=== PATIENT | female | born 1960 | race Caucasian/White ===

== ENCOUNTER → 2018-01-22 | Outpatient (CLI) | payer OTHER ==
[2016-07-14 08:33] VITALS: BP 112/69
[~2018-01-22] MED LIST: ALPR1TAB2 PO; ASPI-630 PO; ATOR10TA60 PO; ATOR40TA59 PO; BUPR100T11 PO; ESCITALOPRAM OX20 MG PO; FLUO20CA16; IBUP200T44 PO; LOSA1TAB25 PO; LOSA50TA6 PO; MAG DELAY64 MG PO; METF500T4 PO; OMEP10CA3 PO; OMEP40CA5 PO; OXYC-323 PO; TOPI25TA52 PO
--- NOTE | 2018-01-22 15:26 | RAD ---
KUB History: Abdominal pain and epigastric pain towards the right side since Monday. Nausea. Soft stools. Findings: No obstructive bowel pattern is seen. Calcified phleboliths are seen within both sides of the anatomic pelvis. Cholecystectomy clips are evident. IMPRESSION: No acute radiographic abnormality.
== END | disposition home or self-care (01) ==
LOC: DXRAD 12:50
PROVIDERS: ATTEND Nurse Practitioner
DX: R10.9 Unspecified abdominal pain (principal); I87.8 Other specified disorders of veins
CPT/HCPCS: 74018

== ENCOUNTER 2018-12-07 20:26 | Emergency (ER) | payer SELFPAY ==
[~2018-12-07] VITALS: Ht 154.9 cm; Wt 68.9 kg
[~2018-12-07 20:26] MED LIST changes: -LOSA50TA6 PO; +LOSA50TA86 PO; +METF500T16 PO; -METF500T4 PO; -OXYC-323 PO; +OXYC1TAB15 PO
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
[2018-12-07 22:00] VITALS: BP 128/82
[2018-12-07] MEDS ORDERED: IBUPROFEN 600 MG TABLET. PO ONE (22:00)
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
[2018-12-07] MEDS ORDERED: HYDR-3165 PO (22:01)
== END 2018-12-07 22:10 | disposition home or self-care (01) ==
LOC: EEVIPCON 20:26 → ER 20:26
DX: S62.367A Nondisplaced fracture of neck of fifth metacarpal bone, left hand, initial encounter for closed fracture (principal); Y04.0XXA Assault by unarmed brawl or fight, initial encounter; Y93.89 Activity, other specified; Y92.89 Other specified places as the place of occurrence of the external cause; Y99.8 Other external cause status
CPT/HCPCS: 29125; 73130; 99283

== ENCOUNTER → 2022-01-14 | Outpatient (CLI) | payer OTHER ==
[~2022-01-14] MED LIST changes: +HYDR-3165 PO; -OMEP10CA3 PO; +OMEP10CA4 PO; -OMEP40CA5 PO; +OMEP40CA7 PO
[2022-01-14 16:00] LABS: BASO # 0.1 x10^3/uL (0.0-0.2); BASO % 1 % (0-3); EOS # 0.3 x10^3/uL (0.0-0.7); EOS % 3 % (0-3); HEMOGLOBIN 15.1 g/dL (12.0-15.5); LYMPH # 3.7 x10^3/uL (1.0-4.8); LYMPH % 46 % (24-48); MEAN CORPUSCULAR HEMOGLOBIN 31 pg (25-35); MEAN CORPUSCULAR HGB CONC 34 g/dL (31-37); MEAN CORPUSCULAR VOLUME 91 fL (79-100); MONO # 0.5 x10^3/uL (0.0-1.1); MONO % 6 % (0-9); NEUT # 3.5 x10^3uL (1.8-7.7); NEUT % 44 % (31-73); PLATELET COUNT 326 x10^3/uL (140-400); RED BLOOD COUNT 4.96 x10^6/uL (3.50-5.40); RED CELL DISTRIBUTION WIDTH 13.8 % (11.5-14.5)
[2022-01-14 16:04] LABS: ALBUMIN 4.1 g/dL (3.4-5.0); ALBUMIN/GLOBULIN RATIO 1.1 (1.0-1.7); CALCIUM 8.9 mg/dL (8.5-10.1); CREATININE 0.6 mg/dL (0.6-1.0); POTASSIUM 4.3 mmol/L (3.5-5.1); TOTAL BILIRUBIN 0.4 mg/dL (0.2-1.0); TOTAL PROTEIN 7.8 g/dL (6.4-8.2)
[2022-01-15 11:23] LABS: FREE T4 0.96 ng/dL (0.76-1.46); THYROID STIM HORMONE (TSH) 2.403 uIU/mL (0.358-3.740)
== END ==
LOC: LAB 15:27
PROVIDERS: ATTEND Family Medicine
DX: R10.13 Epigastric pain (principal)
CPT/HCPCS: 36415; 80053; 83690; 84439; 84443; 85025

== ENCOUNTER → 2022-01-17 | Outpatient (CLI) | payer BC, OTHER ==
--- NOTE | 2022-01-17 15:52 | RAD ---
CT ABDOMEN+PELVIS WO History: Abdominal pain for one year. Comparison: 01/31/2014 Technique: CT abdomen and pelvis without contrast. Findings: The lung bases are clear. No pleural or pericardial effusion. Hypoattenuating focus in the right hepatic lobe measuring 1.2 cm previously demonstrated flash fillin g consistent with hemangioma. The gallbladder is surgically absent. The pancreas, spleen and adrenal glands are unremarkable. Right kidney is within normal limits. The left kidney demonstrates prominent dilation of the renal pelvis and mild hydronephrosis, increased from comparison with narrowing at th e ureteropelvic junction. No ureterolithiasis or hydroureter. Stomach and small bowel are unremarkable. Normal appendix. Colon is within normal limits. No colonic wall thickening or pericolonic inflammatory changes. The bladder is unremarkable. Status post hystere ctomy. No free intraperitoneal air or fluid. Atherosclerotic calcification of the aorta with focal sh ort segment ectasia measuring 2.2 cm AP measured on the sagittal image. No adenopathy. Soft tissues a re unremarkable. No acute osseous abnormality. Impression: 1. 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 Findings increased from comparison. 2. Mild focal ectasia of the infrarenal aorta measuring 2.2 cm. ------ Exposure: One or more of the following individualized dose reduction techniques were utilized for thi s examination: 1. Automated exposure control 2. Adjustment of the mA and/or kV according to patient size 3. Use of iterative reconstruction technique. Electronically signed by: Ron Rodrigez MD (01/17/2022 3:49 PM) [id number]
== END ==
LOC: CT 11:19
PROVIDERS: ATTEND Family Medicine
DX: N13.30 Unspecified hydronephrosis (principal); I77.811 Abdominal aortic ectasia; I70.0 Atherosclerosis of aorta; R10.13 Epigastric pain; Z90.49 Acquired absence of other specified parts of digestive tract
CPT/HCPCS: 74176

== ENCOUNTER 2022-01-25 10:48 | Emergency (ER) | payer BC ==
[~2022-01-25] VITALS: Ht 154.9 cm; Wt 67.0 kg
[2022-01-25] MEDS ORDERED: IV NORMAL SALINE 1,000ML 1,000 ML IV SCH (11:15)
[2022-01-25 11:28] LABS: BASO # 0.1 x10^3/uL (0.0-0.2); BASO % 1 % (0-3); EOS # 0.2 x10^3/uL (0.0-0.7); EOS % 3 % (0-3); HEMATOCRIT 44.6 % (36.0-47.0); HEMOGLOBIN 14.9 g/dL (12.0-15.5); LYMPH # 2.6 x10^3/uL (1.0-4.8); LYMPH % 32 % (24-48); MEAN CORPUSCULAR HEMOGLOBIN 30 pg (25-35); MEAN CORPUSCULAR HGB CONC 33 g/dL (31-37); MEAN CORPUSCULAR VOLUME 90 fL (79-100); MONO # 0.6 x10^3/uL (0.0-1.1); MONO % 8 % (0-9); NEUT # 4.5 x10^3uL (1.8-7.7); NEUT % 57 % (31-73); PLATELET COUNT 329 x10^3/uL (140-400); RED BLOOD COUNT 4.94 x10^6/uL (3.50-5.40); RED CELL DISTRIBUTION WIDTH 13.6 % (11.5-14.5)
[2022-01-25 11:40] LABS: CALCIUM 8.8 mg/dL (8.5-10.1); CREATININE 0.6 mg/dL (0.6-1.0)
[2022-01-25] MEDS ORDERED: CONTRAST GIVEN. MC PRN (11:45)
[2022-01-25] MEDS ORDERED: IOHEXOL 350 MG/ML 100 ML VIAL. IV ONE (11:45)
[2022-01-25 11:47] LABS: ALBUMIN 3.8 g/dL (3.4-5.0); TOTAL BILIRUBIN 0.3 mg/dL (0.2-1.0); TOTAL PROTEIN 7.6 g/dL (6.4-8.2)
[2022-01-25] MEDS ORDERED: IOHEXOL 300 MG/ML 75 ML VIAL. ONE (11:54)
[2022-01-25] MEDS ORDERED: IOHEXOL 300 MG/ML 75 ML VIAL. IV ONE (12:00)
--- NOTE | 2022-01-25 12:18 | RAD ---
PQRS Compliance Statement: One or more of the following individualized dose reduction techniques were utilized for this examinat ion: 1. Automated exposure control 2. Adjustment of the mA and/or kV according to patient size 3. Use of iterative reconstruction technique CTA ABDOMEN AND PELVIS WITHOUT IV CONTRAST Clinical Indication: Reason: abdominal pain, hx of ectasia of aorta, r/o rupture Comparison: CT abdomen and pelvis without contrast 01/17/2022. Technique: Helical CT imaging of the abdomen and pelvis is performed after 75 cc of Omnipaque [address] angiogram protocol. 3-D MIP reconstructions of the aorta. Findings: Mild bilateral dependent atelectasis. Cardiac size is normal. Cholecystectomy. The hypodensity in the right hepatic lobe near the dome demonstrates arterial blush of enhancement, image 18. Lesion is likely hemangioma. Arterial phase spleen, pancreas, and adrenal g lands are normal. There is moderate atherosclerotic calcification and mild chronic mural thrombus of the abdominal aort a. The abdominal aorta branches are patent. There is no aneurysmal dilation of the abdominal aorta. T he proximal left common iliac artery is occluded. There is moderate stenosis of the mid right interna l iliac artery. Visualized femoral arteries are patent. The distal left common iliac artery is recons tituted likely from collateral flow. The left external iliac artery is patent. There is no periaortic fluid or hematoma. Moderate left pelvocaliectasis likely secondary to chronic UPJ stenosis is unchanged. The kidneys enh ance symmetrically. The stomach is unremarkable. There is no dilated small bowel. The appendix is normal. No colon wall t hickening is identified. No abdominal adenopathy. The urinary bladder is decompressed. There is moderate wall thickening. Hysterectomy. No pelvic free fluid. 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 IMPRESSION: 1. Atherosclerotic abdominal aorta. No aneurysm or evidence of impending rupture. 2. 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 3. There is moderate wall thickening of the urinary bladder suggesting cystitis or chronic bladder o utlet obstruction. 4. Unchanged probably chronic moderate left UPJ stenosis. Electronically signed by: Dirk Slade MD (01/25/2022 12:16 PM) [id number]
--- NOTE | 2022-01-25 12:30 | PHYS DOC ---
Past History Past Medical History: Anxiety, Depression, Diabetes, High Cholesterol, Hypertension Past Surgical History: Cholecystectomy, , Hysterectomy, Other Smoking: Non-smoker Alcohol Use: None Drug Use: None General Adult EDM: Chief Complaint: ABDOMINAL PAIN HPI: HPI: Patient is a 61-year-old female who presents to the emergency department for diffuse abdominal pain worse in her epigastric and suprapubic region. She repor ts that she has had the pain for 1 week. She saw her primary care provider Dr. Wolff on January 17 and had lab work and a CT scan performed. She reports that her labs were normal and there is an incidental finding on her CT scan. It appears that patient had left UPJ stenosis seen on that scan. Patient reports nausea with her symptoms. She denies vomiting, diarrhea, blood in her stools, urinary symptoms, fever. She reports that her last bowel movement was this morning. Review of Systems: Review of Systems: Constitutional: See HPI GI: See HPI : See HPI Current Medications: Current Meds: Current Medications Medications (Trade) Dose Ordered Sig/Xochilt Start Time Stop Time Status Last Admin Dose Admin Fentanyl Citrate (Fentanyl 2ml Vial) 50 mcg 1X ONCE 01/25/22 11:30 01/25/22 11:31 DC 01/25/22 11:30 50 MCG Info (Do NOT chart on this entry -- for MONITORING) 1 each PRN DAILY PRN 01/25/22 11:45 01/27/22 11:44 Iohexol (Omnipaque 300 Mg/ml) 75 ml 1X ONCE 01/25/22 12:00 01/25/22 12:01 DC 01/25/22 11:56 75 ML Iohexol (Omnipaque 350 Mg/ml) 100 ml 1X ONCE 01/25/22 11:45 01/25/22 11:46 DC Sodium Chloride 1,000 ml @ 1,000 mls/hr Q1H 01/25/22 11:15 01/25/22 12:14 DC 01/25/22 11:15 1,000 MLS/HR Allergies: Allergies: Allergies Coded Allergies Type Severity Reaction Last Updated Verified No Known Drug Allergies 01/31/14 No Physical Exam: PE: Constitutional: Well developed, well nourished, no acute distress, non-toxic appearance. [] HENT: Normocephalic, atraumatic, bilateral external ears normal, oropharynx moist, no oral exudates, nose normal. [] Eyes: PERRL, EOMI, conjunctiva normal, no discharge. [] Neck: Normal range of motion, no stridor Cardiovascular:Heart rate regular rhythm, no murmur [] Lungs & Thorax: Bilateral breath sounds clear to auscultation [] Abdomen: Bowel sounds normal, soft, generalized abdominal pain with palpation, suprapubic, tenderness with palpation, no abdominal rigidity, no masses, no pulsatile masses. [] Skin: Warm, dry, no erythema, no rash. [] Back: No tenderness, left-sided CVA tenderness Extremities: No tenderness, no cyanosis, no clubbing, ROM intact, no edema. [] Neurologic: Alert and oriented X 3, normal motor function, normal sensory function, no focal deficits noted. [] Psychologic: Affect normal, judgement normal, mood normal. [] Current Patient Data: Labs: Laboratory Tests Test 01/25/22 11:14 01/25/22 11:42 White Blood Count 8.0 x10^3/uL Red Blood Count 4.94 x10^6/uL Hemoglobin 14.9 g/dL Hematocrit 44.6 % Mean Corpuscular Volume 90 fL Mean Corpuscular Hemoglobin 30 pg Mean Corpuscular Hemoglobin Concent 33 g/dL Red Cell Distribution Width 13.6 % Platelet Count 329 x10^3/uL Neutrophils (%) (Auto) 57 % Lymphocytes (%) (Auto) 32 % Monocytes (%) (Auto) 8 % Eosinophils (%) (Auto) 3 % Basophils (%) (Auto) 1 % Neutrophils # (Auto) 4.5 x10^3uL Lymphocytes # (Auto) 2.6 x10^3/uL Monocytes # (Auto) 0.6 x10^3/uL Eosinophils # (Auto) 0.2 x10^3/uL Basophils # (Auto) 0.1 x10^3/uL Sodium Level 137 mmol/L Potassium Level 4.0 mmol/L Chloride Level 102 mmol/L Carbon Dioxide Level 26 mmol/L Anion Gap 9 Blood Urea Nitrogen 15 mg/dL Creatinine 0.6 mg/dL Estimated GFR (Cockcroft-Gault) 102.0 BUN/Creatinine Ratio 25 Glucose Level 98 mg/dL Calcium Level 8.8 mg/dL Total Bilirubin 0.3 mg/dL Aspartate Amino Transf (AST/SGOT) 16 U/L Alanine Aminotransferase (ALT/SGPT) 23 U/L Alkaline Phosphatase 57 U/L Total Protein 7.6 g/dL Albumin 3.8 g/dL Albumin/Globulin Ratio 1.0 Lipase 118 U/L Urine Collection Type Unknown Urine Color Yellow Urine Clarity Clear Urine pH 6.5 Urine Specific [place] 1.020 Urine Protein Neg Urine Glucose (UA) Neg mg/dL Urine Ketones (Stick) Neg mg/dL Urine Blood Neg Urine Nitrite Neg Urine Bilirubin Neg Urine Urobilinogen Dipstick 0.2 mg/dL Urine Leukocyte Esterase Neg Urine RBC 0 /HPF Urine WBC 1-4 /HPF Urine Bacteria Few /HPF Current Medications Medications (Trade) Dose Ordered Sig/Xochilt Route PRN Reason Start Time Stop Time Status Last Admin Dose Admin Sodium Chloride 1,000 ml @ 1,000 mls/hr Q1H IV 01/25/22 11:15 01/25/22 12:14 DC 01/25/22 11:15 Fentanyl Citrate (Fentanyl 2ml Vial) 50 mcg 1X ONCE IVP 01/25/22 11:30 01/25/22 11:31 DC 01/25/22 11:30 Iohexol (Omnipaque 350 Mg/ml) 100 ml 1X ONCE IV 01/25/22 11:45 01/25/22 11:46 DC Info (Do NOT chart on this entry -- for MONITORING) 1 each PRN DAILY PRN MC SEE COMMENTS 01/25/22 11:45 01/27/22 11:44 Iohexol (Omnipaque 300 Mg/ml) 75 ml STK-MED ONCE .ROUTE 01/25/22 11:54 01/25/22 11:54 DC Iohexol (Omnipaque 300 Mg/ml) 75 ml 1X ONCE IV 01/25/22 12:00 01/25/22 12:01 DC 01/25/22 11:56 Morphine Sulfate (Morphine 2mg Syringe) 2 mg 1X ONCE IV 01/25/22 12:45 01/25/22 12:46 Laboratory Tests Test 01/25/22 11:14 White Blood Count 8.0 x10^3/uL (4.0-11.0) Red Blood Count 4.94 x10^6/uL (3.50-5.40) Hemoglobin 14.9 g/dL (12.0-15.5) Hematocrit 44.6 % (36.0-47.0) Mean Corpuscular Volume 90 fL (79-100) Mean Corpuscular Hemoglobin 30 pg (25-35) Mean Corpuscular Hemoglobin Concent 33 g/dL (31-37) Red Cell Distribution Width 13.6 % (11.5-14.5) Platelet Count 329 x10^3/uL (140-400) Neutrophils (%) (Auto) 57 % (31-73) Lymphocytes (%) (Auto) 32 % (24-48) Monocytes (%) (Auto) 8 % (0-9) Eosinophils (%) (Auto) 3 % (0-3) Basophils (%) (Auto) 1 % (0-3) Neutrophils # (Auto) 4.5 x10^3uL (1.8-7.7) Lymphocytes # (Auto) 2.6 x10^3/uL (1.0-4.8) Monocytes # (Auto) 0.6 x10^3/uL (0.0-1.1) Eosinophils # (Auto) 0.2 x10^3/uL (0.0-0.7) Basophils # (Auto) 0.1 x10^3/uL (0.0-0.2) Sodium Level 137 mmol/L (136-145) Potassium Level 4.0 mmol/L (3.5-5.1) Chloride Level 102 mmol/L (98-107) Carbon Dioxide Level 26 mmol/L (21-32) Anion Gap 9 (6-14) Blood Urea Nitrogen 15 mg/dL (7-20) Creatinine 0.6 mg/dL (0.6-1.0) Estimated GFR (Cockcroft-Gault) 102.0 BUN/Creatinine Ratio 25 (6-20) H Glucose Level 98 mg/dL (70-99) Calcium Level 8.8 mg/dL (8.5-10.1) Total Bilirubin 0.3 mg/dL (0.2-1.0) Aspartate Amino Transferase (AST) 16 U/L (15-37) Alanine Aminotransferase (ALT) 23 U/L (14-59) Alkaline Phosphatase 57 U/L (46-116) Total Protein 7.6 g/dL (6.4-8.2) Albumin 3.8 g/dL (3.4-5.0) Albumin/Globulin Ratio 1.0 (1.0-1.7) Lipase 118 U/L (73-393) Vital Signs: Vital Signs Date Time Temp Pulse Resp B/P (MAP) Pulse Ox O2 Delivery O2 Flow Rate FiO2 01/25/22 11:30 16 01/25/22 10:58 98.3 84 147/80 (102) 98 EKG: EKG: [] Radiology/Procedures: Radiology/Procedures: []PROCEDURE: CT ANGIOGRAPHY ABD AND PELVIS PQRS Compliance Statement: One or more of the following individualized dose reduction techniques were utilized for this examination: 1. Automated exposure control 2. Adjustment of the mA and/or kV according to patient size 3. Use of iterative reconstruction technique CTA ABDOMEN AND PELVIS WITHOUT IV CONTRAST Clinical Indication: Reason: abdominal pain, hx of ectasia of aorta, r/o rupture Comparison: CT abdomen and pelvis without contrast 01/17/2022. Technique: Helical CT imaging of the abdomen and pelvis is performed after 75 cc of Omnipaque [address] angiogram protocol. 3-D MIP reconstructions of the aorta. Findings: Mild bilateral dependent atelectasis. Cardiac size is normal. Cholecystectomy. The hypodensity in the right hepatic lobe near the dome d emonstrates arterial blush of enhancement, image 18. Lesion is likely hemangioma. Arterial phase spleen, pancreas, and adrenal glands are normal. There is moderate atherosclerotic calcification and mild chronic mural thrombus of the abdominal aorta. The abdominal aorta branches are patent. There is no aneurysmal dilation of the abdominal aorta. The proximal left common iliac arter y is occluded. There is moderate stenosis of the mid right internal iliac artery. Visualized femoral arteries are patent. The distal left common iliac artery is reconstituted likely from collateral flow. The left external iliac artery is patent. There is no periaortic fluid or hematoma. Moderate left pelvocaliectasis likely secondary to chronic UPJ stenosis is unchanged. The kidneys enhance symmetrically. The stomach is unremarkable. There is no dilated small bowel. The appendix is normal. No colon wall thickening is identified. No abdominal adenopathy. The urinary bladder is decompressed. There is moderate wall thickening. Hyste rectomy. No pelvic free fluid. 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 IMPRESSION: 1. Atherosclerotic abdominal aorta. No aneurysm or evidence of impending rupture. 2. 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 3. There is moderate wall thickening of the urinary bladder suggesting cystitis or chronic bladder outlet obstruction. 4. Unchanged probably chronic moderate left UPJ stenosis. Electronically signed by: Dirk Slade MD (01/25/2022 12:16 PM) [id number] DICTATED AND SIGNED BY: DIRK SLADE MD DATE: 01/25/22 1204 CC: ELIANE NEELY MD; CHERYL GALO INDUSTRIAL MACHINE OPERATOR ~MTH0 0 Heart Score: C/O Chest Pain: N/A Risk Factors: Risk Factors: DM, Current or recent (<one month) smoker, HTN, HLP, family history of CAD, obesity. Risk Scores: Score 0 - 3: 2.5% MACE over next 6 weeks - Discharge Home Score 4 - 6: 20.3% MACE over next 6 weeks - Admit for Clinical Observation Score 7 - 10: 72.7% MACE over next 6 weeks - Early Invasive Strategies Course & Med Decision Making: Course & Med Decision Making Pertinent Labs and Imaging studies reviewed. (See chart for details) Patient presents to the emergency department with generalized abdominal pain worse in her epigastric and suprapubic region with nausea. Patient was seen by her primary care provider, Dr. Wolff on January 17 and had blood work which was unremarkable and CT scan performed of her abdomen and pelvis which showed left UPJ stenosis and Ectasia of the infrarenal aorta. Blood work including lipase, urinalysis was performed. CT angio was performed that she did have the enlargement of the infrarenal aorta to rule out dissection. Blood work was unremarkable. CT imaging shows unchanged chronic left moderate UPJ stenosis and wall thickening of bladder consistent with cystitis there is no aneurysm or impending rupture or dissection. Discussed patient's findings with supervising physician. Patient will be treated with an antibiotic to treat cystitis. She will be discharged home with pain medication. I discussed these findings with patient and she reports that she has an appointment with Dr. Feliz with GI and an appointment with a urologist at the end of the month. I told her to keep these appointments and contact Dr. Wolff tomorrow to follow-up regarding her ER visit. Patient's vital signs are stable. I discussed with patient all findings and diagnostic testing as well as the need to follow-up with PCP for further evaluation and treatment or return to the ER if any new or worsening symptoms. Strict return precautions were also discussed at length. Patient voiced understanding and agreement with the plan. Patient is hemodynamically stable at the time of disposition. Zaynabon Disclaimer: Lisset Disclaimer: This electronic medical record was generated, in whole or in part, using a voice recognition dictation system. Departure Departure: Impression: Primary Impression: Cystitis Disposition: HOME / SELF CARE / HOMELESS Condition: GOOD Referrals: ELIANE NEELY MD (PCP) Patient Instructions: Urinary Tract Infection Additional Instructions: You are seen in the emergency department today for abdominal pain. It appears that you have cystitis which will be treated with an antibiotic. Please start and finish it completely. Increase your fluids and avoid any bladder irritants like caffeine, sugary beverages or alcohol. You are being discharged home with pain medication. This medication may cause sedation so do not take when you need to be alert, driving a vehicle or with alcohol. Do not take any additional Tylenol with this medication as it already contains Tylenol. Dont take your omeprazole with this medication. Follow-up with Dr. Wolff tomorrow regarding your ER visit. Please keep your appointments with GI and urology as previously scheduled. Return to the emergency department if you develop worseni ng of your abdominal pain, back pain, intractable nausea or vomiting, high fevers refractory to treatment, blood in your stools or vomit or any new or worsening concerns. Scripts Hydrocodone Bit/Acetaminophen (HYDROCODONE-APAP 5-325 ) 1 Each Tablet 1 TAB PO PRN Q6HRS PRN for PAIN for 2 Days, #8 TAB 0 Refills Prov: CHERYL GALO INDUSTRIAL MACHINE OPERATOR 01/25/22 Cefpodoxime Proxetil (CEFPODOXIME PROXETIL) 200 Mg Tablet 1 TAB PO BID for infection for 10 Days, #20 TAB 0 Refills Prov: CHERYL GALO INDUSTRIAL MACHINE OPERATOR 01/25/22 CHERYL GALO INDUSTRIAL MACHINE OPERATOR Jan 25, 2022 12:30
[2022-01-25 12:34] LABS: BACTERIA,URINE FEW /HPF (0-FEW); CLARITY,URINE CLEAR; COLOR,URINE YELLOW; GLUCOSE,URINE NEG (NEG); NITRITE,URINE NEG (NEG); RBC,URINE 0 /HPF (0-2); UROBILINOGEN,URINE 0.2 mg/dL (0.2 mg/dL)
[2022-01-25] MEDS ORDERED: MORPHINE SULFATE 2 MG/ML DISP.SYRIN. IV ONE (12:45)
[2022-01-25] MEDS ORDERED: HYDR-2155 PO (12:48)
[2022-01-25] MEDS ORDERED: CEFP200T PO (12:48)
[2022-01-25 13:02] VITALS: BP 160/98
== END 2022-01-25 13:14 | disposition home or self-care (01) ==
LOC: ER 10:48
DX: N30.90 Cystitis, unspecified without hematuria (principal); F41.9 Anxiety disorder, unspecified; F32.9 Major depressive disorder, single episode, unspecified; E11.9 Type 2 diabetes mellitus without complications; E78.00 Pure hypercholesterolemia, unspecified; I10 Essential (primary) hypertension; Z90.49 Acquired absence of other specified parts of digestive tract; Z98.890 Other specified postprocedural states; Z90.710 Acquired absence of both cervix and uterus
CPT/HCPCS: 36415; 74174; 80053; 81001; 83690; 85025; 96361; 96374; 99285; J3010; J7030; Q9967

== ENCOUNTER → 2022-03-30 | Outpatient (CLI) | payer BC ==
[~2022-03-30] MED LIST changes: +CEFP200T PO; +HYDR-2155 PO
--- NOTE | 2022-03-30 15:26 | RAD ---
Examination: Small Bowel Series: History: Umblical pain, left lower quadrant abdominal pain Findings: The preliminary film is unremarkable. Following administration of oral barium, images were performed at timed intervals. The transit time it is approximately 40 minutes. The duodenal loop appears normal . The small bowel mucosal pattern is normal. There is no stricture or dilatation. The terminal ileum appears normal. Impression: Negative small bowel series. Electronically signed by: Jefry Munoz MD (03/30/2022 3:23 PM) [id number]
== END ==
LOC: RAD 07:57
PROVIDERS: ATTEND Internal Medicine Gastroenterology
DX: R10.9 Unspecified abdominal pain (principal); R10.33 Periumbilical pain
CPT/HCPCS: 74250